=== PATIENT | female | born 1935 | race Caucasian/White ===

== ENCOUNTER 2016-08-02 07:46 | Outpatient (CLI) | payer MEDICARE ==
[2016-08-02 08:46] LABS: #Basophils 0.1 thou/uL (0.0-0.2); #Eosinphils 0.1 thou/uL (0.0-0.7); #Lymphocytes 2.4 thou/uL (1.20-3.40); #Monocytes 0.6 thou/uL (0.11-0.59); #Neutrophils 2.7 thou/uL (1.40-6.50); %Basophils 1.7 % (0.0-1.0); %Eosinophils 2.5 % (0.0-10.0); %Lymphocytes 39.7 % (21.0-51.0); %Neutrophils 46.2 % (42.0-75.0); Hemoglobin 13.6 g/dL (12.0-16.0); Mean Corpuscular HGB CONC 31.9 g/dL (32.0-36.0); Mean Corpuscular Hemoglobin 26.5 pg (27.0-31.0); Mean Corpuscular Volume 82.9 fl (81.0-99.0); Mean Platelet Volume 8.6 fL (7.4-10.4); Platelet Count 228 thou/uL (130-400); RBC Distribution Width 13.3 % (11.5-14.5); Red Blood Cell (RBC) Count 5.12 mill/uL (4.20-5.40); White Blood Cell (WBC) Count 5.9 thou/uL (4.8-10.8)
[2016-08-02 09:20] LABS: Triglycerides 131 mg/dL (Less than 150)
[2016-08-02 09:27] LABS: ALT (SGPT) 62 U/L (0-55); AST (SGOT) 48 U/L (5-34); Albumin 3.9 g/dL (3.4-4.8); Alkaline Phosphatase 86 U/L (40-150); Anion Gap 14 mmol/L (10-20); BUN (Urea Nitrogen) 16 mg/dL (9.8-20.1); Bilirubin, Direct 0.3 mg/dL (0.1-0.3); Bilirubin, Total 0.5 mg/dL (0.2-1.2); Calc. Creatinine Clearance 0 mL/min (70-130); Calcium 9.7 mg/dL (7.8-10.44); Carbon Dioxide 24 mmol/L (23-31); Cardiac Risk 3.4 (Less than 4.5); Chloride 105 mmol/L (98-107); Cholesterol 132 mg/dL (< 200 Desired); Estimated GFR-MDRD 63; Glucose 128 mg/dL (83-110); HDL Cholesterol 39 mg/dL (>60 Neg Risk); LDL Cholesterol, Calculated 67 mg/dL; Potassium 3.9 mmol/L (3.5-5.1); Protein, Total 7.6 g/dL (5.8-8.1); Sodium 139 mmol/L (136-145)
== END 2016-08-02 07:47 ==
LOC: MADLABBHPM 07:46
PROVIDERS: ATTEND Family Medicine
DX: E11.9 Type 2 diabetes mellitus without complications (principal)
CPT/HCPCS: 36415; 80048; 80061; 80076; 83036; 85025

== ENCOUNTER 2016-11-05 07:28 | Outpatient (CLI) | payer MEDICARE ==
[2016-11-05 07:58] LABS: Hemoglobin A1c 6.1 % (4.0-6.0)
[2016-11-05 08:16] LABS: ALT (SGPT) 18 U/L (8-55); AST (SGOT) 15 U/L (5-34); Albumin 3.8 g/dL (3.4-4.8); Alkaline Phosphatase 73 U/L (40-150); Anion Gap 18 mmol/L (10-20); BUN (Urea Nitrogen) 14 mg/dL (9.8-20.1); Bilirubin, Direct 0.1 mg/dL (0.1-0.3); Bilirubin, Total 0.4 mg/dL (0.2-1.2); Calc. Creatinine Clearance 0 mL/min (70-130); Calcium 9.5 mg/dL (7.8-10.44); Carbon Dioxide 20 mmol/L (23-31); Cardiac Risk 5.4 (Less than 4.5); Chloride 104 mmol/L (98-107); Cholesterol 209 mg/dl (< 200 Desired); Estimated GFR-MDRD 63; Glucose 124 mg/dL (83-110); HDL Cholesterol 39 mg/dL (>60 Neg Risk); LDL Cholesterol, Calculated 135 mg/dL; Potassium 4.1 mmol/L (3.5-5.1); Protein, Total 7.5 g/dL (6.0-8.3); Sodium 138 mmol/L (136-145); Triglycerides 175 mg/dL (Less than 150)
[2016-11-05 08:24] LABS: #Basophils 0.1 thou/uL (0.0-0.2); #Eosinphils 0.2 thou/uL (0.0-0.7); #Lymphocytes 2.5 thou/uL (1.20-3.40); #Monocytes 0.5 thou/uL (0.11-0.59); #Neutrophils 2.8 thou/uL (1.40-6.50); %Basophils 1.6 % (0.0-1.0); %Eosinophils 2.5 % (0.0-10.0); %Lymphocytes 40.8 % (21.0-51.0); %Neutrophils 47.1 % (42.0-75.0); Hemoglobin 13.6 g/dL (12.0-16.0); Mean Corpuscular HGB CONC 32.2 g/dL (32.0-36.0); Mean Corpuscular Hemoglobin 26.8 pg (27.0-31.0); Mean Corpuscular Volume 83.1 fl (81.0-99.0); Platelet Count 221 thou/uL (130-400); RBC Distribution Width 13.3 % (11.5-14.5)
[2016-11-05 08:33] LABS: Thyroid Stimulating Hormone 1.8466 uIU/mL (0.35-4.94)
[2016-11-05 17:30] LABS: Creatinine, Urine 81.04 mg/dL (47-110); Microalbumin Urine Less than 1.0 mg/dL (0.5-50.0); Microalbumin/Creat Ratio 12.3 mg/g (Less than 30)
[2016-11-05 17:54] LABS: HBCM Index 0.06 S/CO (0-0.79); HBSAg Index 0.31 S/CO (0-0.99); Hep A IgM AB Non-Reactive (NonReactive); Hep B Surf Ag Non-Reactive S/CO (NonReactive); Hep C IgG Ab Non-Reactive (NonReactive); Hep C Index 0.12 S/CO (0-0.79); Hepatitis B Core IGM Abs Non-Reactive (NonReactive)
== END 2016-11-05 07:29 ==
LOC: MADLABBHPM 07:28
PROVIDERS: ATTEND Family Medicine
DX: E78.5 Hyperlipidemia, unspecified (principal); E11.22 Type 2 diabetes mellitus with diabetic chronic kidney disease; N18.3 Chronic kidney disease, stage 3 (moderate); F41.9 Anxiety disorder, unspecified; R94.5 Abnormal results of liver function studies
CPT/HCPCS: 36415; 80048; 80061; 80074; 80076; 82043; 83036; 84443; 85025

== ENCOUNTER 2016-11-08 09:17 | Outpatient (CLI) | payer MEDICARE ==
--- NOTE | 2016-11-08 11:40 | RAD ---
RIGHT KNEE: Four views obtained. HISTORY: HISTORY: Right knee pain. Postoperative changes are seen in the proximal tibia with lateral plate and screws transfixing the p roximal tibia. There are moderate degenerative changes at the knee. There is loss of both medial a nd lateral joint space and there is spurring from all joint compartments. No significant joint effu roxy. IMPRESSION: There are postoperative and degenerative changes seen at the right knee. POS: [facility]
== END 2016-11-08 09:18 | disposition home or self-care (01) ==
LOC: MADRAD 09:17
PROVIDERS: ATTEND Family Medicine
DX: M25.561 Pain in right knee (principal)

== ENCOUNTER 2017-02-04 07:41 | Outpatient (CLI) | payer MEDICARE ==
[2017-02-04 08:18] LABS: Hemoglobin A1c 6.2 % (4.0-6.0)
[2017-02-04 09:12] LABS: ALT (SGPT) 15 U/L (8-55); Alkaline Phosphatase 67 U/L (40-150); Anion Gap 13 mmol/L (10-20); BUN (Urea Nitrogen) 15 mg/dL (9.8-20.1); Bilirubin, Direct 0.2 mg/dL (0.1-0.3); Bilirubin, Total 0.5 mg/dL (0.2-1.2); Calc. Creatinine Clearance 0 mL/min (70-130); Calcium 9.9 mg/dL (7.8-10.44); Carbon Dioxide 24 mmol/L (23-31); Cardiac Risk 3.2 (Less than 4.5); Chloride 105 mmol/L (98-107); Cholesterol 143 mg/dl (< 200 Desired); Estimated GFR-MDRD 65; Glucose 137 mg/dL (83-110); HDL Cholesterol 45 mg/dL (>60 Neg Risk); LDL Cholesterol, Calculated 74 mg/dL; Potassium 4.1 mmol/L (3.5-5.1); Protein, Total 7.6 g/dL (6.0-8.3); Sodium 138 mmol/L (136-145); Triglycerides 119 mg/dL (Less than 150)
[2017-02-04 09:46] LABS: AST (SGOT) 14 U/L (5-34)
== END 2017-02-04 07:42 | disposition home or self-care (01) ==
LOC: MADLABBHPM 07:41
PROVIDERS: ATTEND Family Medicine
DX: E78.5 Hyperlipidemia, unspecified (principal); E11.9 Type 2 diabetes mellitus without complications
CPT/HCPCS: 36415; 80048; 80061; 80076; 83036

== ENCOUNTER 2017-05-14 07:50 | Outpatient (CLI) | payer MEDICARE ==
--- NOTE | 2017-05-14 09:03 | ULT ---
ABDOMEN ULTRASOUND: HISTORY: Epigastric pain. COMPARISON: None. FINDINGS: The pancreas is unremarkable. Hepatic echotexture is normal. The common bile duct measures under 10 mm. Gallbladder wall thickness is less than 3 mm. The right kidney measures 10.1 x 5.2 x 4.7 cm without mass, hydronephrosis, or abnormal calcification. The sup erior pole measures 3.3 cm. The left kidney measures 10.4 x 5.1 x 4.1 cm without mass, hydronephrosi s, or abnormal calcification. The spleen measures 8.9 x 5.7 cm. According to the technologist, there is a positive sonographic Castelan sign. No cholelithiasis is edgar reciated. IMPRESSION: 1. Right superior renal cyst. 2. No cholelithiasis. 3. Normal common bile duct, as well as gallbladder wall thickness. POS: [facility]
== END 2017-05-14 07:51 | disposition home or self-care (01) ==
LOC: MADULT 07:50
PROVIDERS: ATTEND Family Medicine
DX: R10.13 Epigastric pain (principal); N28.1 Cyst of kidney, acquired; K82.8 Other specified diseases of gallbladder
CPT/HCPCS: 76700

== ENCOUNTER 2019-01-30 02:32 | Emergency (ER) | payer MEDICARE, OTHER ==
[2019-01-30] MEDS ORDERED: Sodium Chloride 0.9% 1,000 ML ONE ×2 (03:03→03:53)
[2019-01-30] MEDS ORDERED: Ondansetron PF 4 MG/2 ML Vial ONE (03:03)
[2019-01-30] MEDS ORDERED: Morphine 4 MG/ML VIAL ONE (03:03)
[2019-01-30 03:28] LABS: #Basophils 0.1 thou/uL (0.0-0.2); #Lymphocytes 1.6 thou/uL (1.20-3.40); #Monocytes 0.6 thou/uL (0.11-0.59); #Neutrophils 10.9 thou/uL (1.40-6.50); %Basophils 0.4 % (0.0-1.0); %Eosinophils 0.2 % (0.0-10.0); %Lymphocytes 12.3 % (21.0-51.0); %Monocytes 4.4 % (0.0-10.0); %Neutrophils 82.7 % (42.0-75.0); Hemoglobin 13.4 g/dL (12.0-16.0); Mean Corpuscular HGB CONC 32.5 g/dL (32.0-36.0); Mean Corpuscular Hemoglobin 25.6 pg (27.0-31.0); Mean Corpuscular Volume 78.9 fL (78.0-98.0); Mean Platelet Volume 6.9 fL (7.4-10.4); Platelet Count 224 thou/uL (130-400); RBC Distribution Width 13.3 % (11.5-14.5); Red Blood Cell (RBC) Count 5.24 mill/uL (4.20-5.40); White Blood Cell (WBC) Count 13.2 thou/uL (4.8-10.8)
[2019-01-30 03:43] LABS: ALT (SGPT) 14 U/L (8-55); AST (SGOT) 12 U/L (5-34); Albumin 4.3 g/dL (3.4-4.8); Alkaline Phosphatase 60 U/L (40-150); Anion Gap 21 mmol/L (10-20); BUN (Urea Nitrogen) 15 mg/dL (9.8-20.1); Bilirubin, Total 0.6 mg/dL (0.2-1.2); CK (CPK) 81 U/L (29-168); Calc. Creatinine Clearance 0 mL/min (70-130); Calcium 10.1 mg/dL (7.8-10.44); Carbon Dioxide 18 mmol/L (23-31); Chloride 103 mmol/L (98-107); Estimated GFR-MDRD 45; Globulin 3.2 g/dL (2.4-3.5); Glucose 201 mg/dL (83-110); Lipase 24 U/L (8-78); Potassium 3.7 mmol/L (3.5-5.1); Protein, Total 7.5 g/dL (6.0-8.3); Sodium 138 mmol/L (136-145)
[2019-01-30] MEDS ORDERED: Sodium Chloride 0.9% 100 ML ONE (04:49)
[2019-01-30] MEDS ORDERED: Piperacillin/Tazobactam 3.375 GM VIAL ONE (04:49)
[2019-01-30 05:14] LABS: Bilirubin Negative (Negative); Blood, Urine Trace (Negative); Clarity Clear (Clear); Glucose, Urine (Dipstick) Negative (Negative); Leukocyte Negative (Negative); Nitrite Negative (Negative); Protein, Urine (Dipstick) Negative (Neg-Trace); Urobilinogen 0.2 mg/dL (Less than 2)
[2019-01-30 05:21] LABS: RBC/HPF 0-3 HPF (0-3); WBC/HPF 0-3 HPF (0-3)
[2019-01-30 05:22] LABS: Bacteria/HPF None Seen HPF (None Seen); Squamous Epithelial 0-3 HPF (0-3)
--- NOTE | 2019-01-30 08:04 | CT ---
PRELIMINARY REPORT/[facility]/EMERGENCY AFTER HOURS PROCEDURE: PROCEDURE INFORMATION: Exam: CT Abdomen and Pelvis With Contrast Exam date and time: 01/30/2019 4:03 AM Clinical history: 83 years old, female; Nausea and vomiting and other: Diarrhea; Abdominal pain; Generalized TECHNIQUE: Imaging protocol: Computed tomography of the abdomen and pelvis with intravenous contrast. Contrast material: ISOVUE 370; Contrast volume: 90 ml; Contrast route: IV; COMPARISON: No relevant prior studies available. FINDINGS: Mediastinum: Small hiatal hernia. Liver: Normal. No mass. Gallbladder and bile ducts: Normal. No calcified stones. No ductal dilation. Pancreas: Normal. No ductal dilation. Spleen: Normal. No splenomegaly. Adrenals: Normal. No mass. Kidneys and ureters: Right renal cyst. Nonobstructive nephrolithiasis left kidney. Stomach and bowel: High-grade distal small bowel obstruction with transition point in the pelvis, presumably secondary to adhesion. No bowel wall thickening. Appendix: Normal appendix. Intraperitoneal space: Unremarkable. No free air. No significant fluid collection. Vasculature: Unremarkable. No abdominal aortic aneurysm. Lymph nodes: Unremarkable. No enlarged lymph nodes. Bladder: Unremarkable as visualized. Reproductive: Unremarkable as visualized. Bones/joints: Unremarkable. No acute fracture. Soft tissues: Small umbilical hernia containing fat only. IMPRESSION: High-grade distal small bowel obstruction with transition point in the pelvis, presumably secondary t o adhesion. Thank you for allowing us to participate in the care of your patient. Dictated and Authenticated by: Segundo Louis MD 01/30/2019 4:27 AM Central Time ([place] & [place]) FINAL REPORT: CT ABDOMEN AND PELVIS WITH IV CONTRAST: PROVIDED CLINICAL HISTORY: Pain. COMPARISON: None. FINDINGS/IMPRESSION: Agree with the preliminary interpretation given by SUREKHA. Transcribed Date/Time: 01/30/2019 8:15 AM
[2019-01-30] MEDS ORDERED: Iopamidol 370 76% 100 ML VIAL ONE (09:16)
== END 2019-01-30 05:42 | disposition short-term general hospital (02) ==
LOC: MADERS 02:32
DX: K56.699 Other intestinal obstruction unspecified as to partial versus complete obstruction (principal); E11.9 Type 2 diabetes mellitus without complications; K21.9 Gastro-esophageal reflux disease without esophagitis; E78.5 Hyperlipidemia, unspecified; E78.00 Pure hypercholesterolemia, unspecified; I10 Essential (primary) hypertension
CPT/HCPCS: 74177; 80053; 81003; 81015; 82550; 83605; 83690; 84484; 85025; 93005; 96365; 96375; J1956; J2270; J2405; J2543; J3490; J7050; Q9967

== ENCOUNTER 2020-02-01 15:22 | Outpatient (CLI) | payer MEDICARE ==
--- NOTE | 2020-02-01 15:53 | RAD ---
EXAM: XR Cerv Sp Ap Lat STANDARD PROVIDED CLINICAL HISTORY: Cervical radiculopathy. Follow-up post surgery. COMPARISON: 12/21/2019 FINDINGS: Again noted are postoperative changes related to anterior cervical fusion with anterior plate and scr ews transfixing the C5-6 and C6-7 levels with intradiscal prostheses. There is question of subtle lucency surrounding the screws within the C7 vertebral body. Mild scattered osteophytes are seen in t he visualized upper cervical spine with mild multilevel facet degenerative changes noted. The vertebral body heights are within normal limits, and no fracture or subluxation is seen. Prevertebral soft tissues have a normal appearance. There is an area of slight increased density seen at the medial aspect right upper lung zone. This is a stable finding compared to prior study and likely related to irregularity of the anterior first rib ending. Similar finding also appeared to be present on chest x-ray in 2004. Symmetric biapical pl eural thickening is noted. IMPRESSION: 1. Postoperative changes related to anterior cervical fusion C5-C7 with suggestion of subtle lucency surrounding the screws in the C7 vertebral body. This could be related to mach effect as opposed to hardware loosening. Follow-up evaluation is recommended.
== END 2020-02-01 15:23 | disposition home or self-care (01) ==
LOC: MADRAD 15:22
PROVIDERS: ATTEND Neurological Surgery
DX: M54.12 Radiculopathy, cervical region (principal); Z98.890 Other specified postprocedural states
CPT/HCPCS: 72040

== ENCOUNTER 2021-12-07 07:42 | Outpatient (CLI) | payer MEDICARE ==
[2021-12-07 09:01] LABS: ALT (SGPT) 11 U/L (8-55); AST (SGOT) 12 U/L (5-34); Albumin 4.1 g/dL (3.4-4.8); Alkaline Phosphatase 55 U/L (40-110); Anion Gap 13 mmol/L (10-20); BUN (Urea Nitrogen) 10 mg/dL (9.8-20.1); Bilirubin, Total 0.4 mg/dL (0.2-1.2); Calc. Creatinine Clearance 0 mL/min (70-130); Calcium 9.5 mg/dL (7.8-10.44); Carbon Dioxide 24 mmol/L (23-31); Cardiac Risk 2.8 (Less than 4.5); Chloride 106 mmol/L (98-107); Cholesterol 119 mg/dl (< 200 Desired); Estimated GFR 80; Glucose 142 mg/dL (83-110); HDL Cholesterol 43 mg/dL (>60 Neg Risk); LDL Cholesterol, Calculated 51 mg/dL; Potassium 3.8 mmol/L (3.5-5.1); Protein, Total 7.1 g/dL (5.8-8.1); Sodium 139 mmol/L (136-145); Triglycerides 125 mg/dL (Less than 150)
[2021-12-07 16:18] LABS: Hemoglobin A1c 6.4 % (4.0-6.0)
== END 2021-12-07 07:43 | disposition home or self-care (01) ==
LOC: MADLAB 07:42
PROVIDERS: ATTEND Family Medicine
DX: M51.16 Intervertebral disc disorders with radiculopathy, lumbar region (principal); E11.9 Type 2 diabetes mellitus without complications; E78.5 Hyperlipidemia, unspecified; M25.78 Osteophyte, vertebrae; Z98.890 Other specified postprocedural states
CPT/HCPCS: 36415; 72100; 80053; 80061; 83036

== ENCOUNTER 2022-11-18 10:52 | Outpatient (CLI) | payer OTHER | END 2022-11-18 10:53 | disposition home or self-care (01) | LOC: MADRAD 10:52 | PROVIDERS: ATTEND Internal Medicine | DX: I10 Essential (primary) hypertension (principal) | CPT/HCPCS: 71046 ==

== ENCOUNTER 2024-01-18 08:42 | Emergency (ER) | payer OTHER ==
[2024-01-18] MEDS ORDERED: Ketorolac Tromethamine 30 MG (1 mL) VIAL ONE (10:07)
== END 2024-01-18 10:25 | disposition home or self-care (01) ==
LOC: MADERS 08:42
DX: B02.9 Zoster without complications (principal); E11.9 Type 2 diabetes mellitus without complications; I10 Essential (primary) hypertension
CPT/HCPCS: 96372; 99283; J1885

== ENCOUNTER 2025-01-18 08:56 | Outpatient (CLI) | payer OTHER | END 2025-01-18 08:57 | disposition home or self-care (01) | LOC: MADRAD 08:56 | PROVIDERS: ATTEND Family Medicine | DX: R05.3 Chronic cough (principal); R91.8 Other nonspecific abnormal finding of lung field | CPT/HCPCS: 71250 ==

== ENCOUNTER 2025-04-08 08:27 | Emergency (ER) | payer OTHER ==
[2025-04-08] MEDS ORDERED: Ondansetron PF 4 MG/2 ML Vial ONE (08:49)
[2025-04-08] MEDS ORDERED: Iopamidol 370 76% 100 ML VIAL ONE (09:00)
[2025-04-08 09:39] LABS: #Basophils 0.1 thou/uL (0.0-0.2); #Eosinophils 0.1 thou/uL (0.0-0.7); #Lymphocytes 1.0 thou/uL (1.20-3.40); #Monocytes 0.5 thou/uL (0.11-0.59); #Neutrophils 8.7 thou/uL (1.40-6.50); %Basophils 0.9 % (0.0-1.0); %Eosinophils 1.2 % (0.0-10.0); %Lymphocytes 9.4 % (21.0-51.0); %Monocytes 4.7 % (0.0-10.0); %Neutrophils 83.8 % (42.0-75.0); Hematocrit 41.0 % (36.0-47.0); Hemoglobin 12.7 g/dL (12.0-16.0); Mean Corpuscular Hemoglobin 26.5 pg (27.0-31.0); Mean Corpuscular Volume 85.7 fl (78.0-98.0); Platelet Count 292 10x3/uL (130-400); Red Blood Cell (RBC) Count 4.78 mill/uL (4.20-5.40); White Blood Cell (WBC) Count 10.4 10x3/uL (4.8-10.8)
[2025-04-08 10:04] LABS: ALT (SGPT) 17 U/L (Less than 34); AST (SGOT) 19 U/L (11-34); Albumin 3.2 g/dL (3.1-4.5); Alkaline Phosphatase 37 U/L (40-110); Anion Gap 21 mmol/L (10-20); BUN (Urea Nitrogen) 15 mg/dL (9.8-20.1); Bilirubin, Total 0.9 mg/dL (0.3-1.2); Calc. Creatinine Clearance 0 mL/min (70-130); Calcium 8.9 mg/dL (7.8-10.44); Carbon Dioxide 20 mmol/L (23-31); Chloride 97 mmol/L (98-107); Globulin 3.5 g/dL (2.4-3.5); Glucose 177 mg/dL (83-110); Lipase 11 U/L (8-78); Potassium 3.2 mmol/L (3.5-5.1); Sodium 135 mmol/L (136-145)
[2025-04-08 10:06] LABS: Troponin I 0.046 ng/mL (< 0.028)
[2025-04-08 10:30] LABS: Magnesium 0.6 mg/dL (1.6-2.6)
[2025-04-08] MEDS ORDERED: Cefepime 2 GM VIAL ONE (10:30)
[2025-04-08] MEDS ORDERED: Magnesium 2 GM/50 ML BAG (IN WATER) ONE (12:04)
[2025-04-08 12:16] LABS: Troponin I 0.037 ng/mL (< 0.028)
== END 2025-04-08 13:57 | disposition short-term general hospital (02) ==
LOC: MADERS 08:27
DX: R06.02 Shortness of breath (principal); R79.89 Other specified abnormal findings of blood chemistry; E83.42 Hypomagnesemia; R11.2 Nausea with vomiting, unspecified; I10 Essential (primary) hypertension; E11.9 Type 2 diabetes mellitus without complications; K21.9 Gastro-esophageal reflux disease without esophagitis; Z79.899 Other long term (current) drug therapy
CPT/HCPCS: 36415; 71045; 71275; 74177; 80053; 83605; 83690; 83735; 83880; 84484; 85025; 85379; 87040; 93005; 96365; 96366; 96367; 96375; J0692; J2405; J3373; J3475; J7030; J7050; Q9967

== ENCOUNTER 2025-04-27 11:37 | Emergency (ER) | payer OTHER ==
[2025-04-27 12:29] LABS: #Basophils 0.1 thou/uL (0.0-0.2); #Eosinophils 0.0 thou/uL (0.0-0.7); #Lymphocytes 0.4 thou/uL (1.20-3.40); #Monocytes 0.3 thou/uL (0.11-0.59); #Neutrophils 11.3 thou/uL (1.40-6.50); %Basophils 0.5 % (0.0-1.0); %Eosinophils 0.0 % (0.0-10.0); %Lymphocytes 3.5 % (21.0-51.0); %Monocytes 2.2 % (0.0-10.0); %Neutrophils 93.8 % (42.0-75.0); Hematocrit 39.1 % (36.0-47.0); Hemoglobin 12.8 g/dL (12.0-16.0); Mean Corpuscular Hemoglobin 26.9 pg (27.0-31.0); Mean Corpuscular Volume 81.8 fl (78.0-98.0); Platelet Count 198 10x3/uL (130-400); Red Blood Cell (RBC) Count 4.78 mill/uL (4.20-5.40); White Blood Cell (WBC) Count 12.1 10x3/uL (4.8-10.8)
[2025-04-27 12:43] LABS: ALT (SGPT) 18 U/L (Less than 34); AST (SGOT) 15 U/L (11-34); Albumin 3.0 g/dL (3.1-4.5); Alkaline Phosphatase 40 U/L (40-110); Anion Gap 19 mmol/L (10-20); BUN (Urea Nitrogen) 22 mg/dL (9.8-20.1); Bilirubin, Total 0.7 mg/dL (0.3-1.2); Calc. Creatinine Clearance 0 mL/min (70-130); Calcium 9.1 mg/dL (7.8-10.44); Carbon Dioxide 25 mmol/L (23-31); Chloride 89 mmol/L (98-107); Globulin 2.9 g/dL (2.4-3.5); Glucose 362 mg/dL (83-110); Magnesium 1.3 mg/dL (1.6-2.6); Potassium 2.9 mmol/L (3.5-5.1); Sodium 130 mmol/L (136-145)
[2025-04-27] MEDS ORDERED: NS 0.9% w/ 20 MEQ KCL 1,000 ML ONE (13:27)
[2025-04-27] MEDS ORDERED: Magnesium 2 GM/50 ML BAG (IN WATER) ONE (13:27)
== END 2025-04-27 17:27 | disposition home or self-care (01) ==
LOC: MADERS 11:37
DX: E86.9 Volume depletion, unspecified (principal); N17.9 Acute kidney failure, unspecified; E87.6 Hypokalemia; E83.42 Hypomagnesemia; E87.1 Hypo-osmolality and hyponatremia; R79.89 Other specified abnormal findings of blood chemistry
CPT/HCPCS: 80053; 83735; 85025; 93005; J3475; J3480; 96365; 96366; 96367